=== PATIENT | male | born 1935 | race Caucasian/White ===

== ENCOUNTER 2021-06-21 23:15 | Emergency (ER) | payer MEDICARE ==
[~2021-06-21] VITALS: Ht 182.9 cm; Wt 111.3 kg
[2021-06-22 00:35] LABS: BASOPHILS # (AUTO) 0.1 X10'3 (0-0.2); EOSINOPHILS # (AUTO) 0.3 X10'3 (0-0.9); HEMOGLOBIN 14.7 g/dl (14.0-17.9); MEAN CORPUSCULAR HEMOGLOBIN 30.8 PG (27.0-31.0); PLATELET COUNT 169 X10'3 (140-440); RED CELL DISTRIBUTION WIDTH 15.7 % (11.5-14.5)
[2021-06-22 00:37] LABS: BASOPHILS % (AUTO) 0.5 % (0-1); EOSINOPHILS % (AUTO) 2.2 % (0-6); HEMATOCRIT 43.7 % (42.0-52.0); LYMPHOCYTES # (AUTO) 9.2 X10'3 (1.1-4.8); LYMPHOCYTES % (AUTO) 60.4 % (21-51); MEAN CORPUSCULAR HGB CONC 33.7 g/dL (33.0-36.5); MEAN CORPUSCULAR VOLUME 91.2 FL (78-98); MEAN PLATELET VOLUME 8.6 FL (7.4-10.4); MONOCYTES # (AUTO) 0.8 X10'3 (0-0.9); MONOCYTES % (AUTO) 4.9 % (2-12); NEUTROPHILS # (AUTO) 4.9 X10'3 (1.8-7.7); RED BLOOD COUNT 4.79 X10'6 (4.70-6.10); WHITE BLOOD COUNT 15.2 X10'3 (4.5-11.0)
[2021-06-22 00:48] LABS: ALANINE AMINOTRANSFERASE 27 U/L (12-78); ALBUMIN 3.7 G/DL (3.4-5.0); ALKALINE PHOSPHATASE 99 IU/L (46-116); ANION GAP 9 (8-16); ASPARTATE AMINO TRANSFERASE 25 U/L (10-37); BILIRUBIN,TOTAL 0.5 MG/DL (0.1-1.0); BLOOD UREA NITROGEN 22 MG/DL (7-18); BUN/CREATININE RATIO 16.3 (5.4-32.0); CHLORIDE 110 MMOL/L (99-107); CREATININE 1.35 MG/DL (0.60-1.10); GLUCOSE 106 MG/DL (70-104); LIPASE 98 U/L (73-393); SODIUM 145 MMOL/L (135-145); TOTAL CARBON DIOXIDE 26.5 MMOL/L (24-32); TOTAL PROTEIN 7.5 G/DL (6.4-8.2); eGFR 50 ML/MIN
[2021-06-22 01:07] LABS: PLATELET ESTIMATE NORMAL
[2021-06-22 01:13] LABS: TOTAL CELLS COUNTED 100
[2021-06-22 01:14] LABS: LARGE PLATELETS FEW
[2021-06-22] MEDS ORDERED: iohexol 300mg/ml 100ml inj. ONE (01:17)
[2021-06-22 01:51] LABS: CLARITY,URINE SLIGHTLY CLOUDY (Clear); COLOR,URINE YELLOW (Yellow); UA COLLECTION TYPE CLN CATCH MIDSTREAM
[2021-06-22 01:52] LABS: GLUCOSE, URINE NEGATIVE (Neg); KETONES,URINE NEGATIVE (Neg); NITRITES, URINE NEGATIVE (Neg); OCCULT BLOOD,URINE LARGE (Neg); PROTEIN,URINE TRACE mg/dl (Neg); UROBILINOGEN,URINE 0.2 E.U/dL (0.2-1.0)
[2021-06-22 01:53] LABS: LEUKOCYTE ESTERASE ,URINE SMALL (Neg)
[2021-06-22 02:10] LABS: BACTERIA,URINE 2+ /HPF (Neg); RBC,URINE 50-100 /HPF (0-2); WBC,URINE 50-100 /HPF (0-4)
[2021-06-22 02:11] LABS: CAL OXALATE CRYSTALS 2+ /HPF (NEGATIVE); MUCUS STRANDS NONE SEEN /LPF (Neg); SQUAMOUS EPITHELIAL CELL,UR FEW /LPF (FEW); WBC CLUMPS,URINE FEW /HPF (NEGATIVE)
[2021-06-22] MEDS ORDERED: CefTRIAXone/D5W-Rocephin 1gm 50 ML IV ONE (02:25)
[2021-06-22] MEDS ORDERED: LOPE2CAP PO (03:37)
[2021-06-22] MEDS ORDERED: CIPR-259 PO (03:37)
[2021-06-22 03:55] VITALS: BP 155/78
== END 2021-06-22 03:59 | disposition home or self-care (01) ==
LOC: ER 23:16
DX: K62.5 Hemorrhage of anus and rectum (principal); R91.1 Solitary pulmonary nodule; N39.0 Urinary tract infection, site not specified; Z79.2 Long term (current) use of antibiotics; Z79.899 Other long term (current) drug therapy
CPT/HCPCS: 36415; 74177; 80053; 81001; 83690; 84145; 85007; 85025; 86885; 86900; 86901; 87077; 87088; 87186; 93005; 96374; 99285; J0696; Q9967; 96365

== ENCOUNTER 2022-05-14 11:14 | Emergency (ER) | payer MEDICARE ==
[~2022-05-14] VITALS: Ht 182.9 cm; Wt 111.4 kg
[~2022-05-14 11:14] MED LIST: LOPE2CAP PO
[2022-05-14 11:19] VITALS: BP 181/91
[2022-05-14] MEDS ORDERED: LIDOcaine 1% W/epiNEPHrine 1:200,000 10ml vial IJ ONE (13:25)
[2022-05-14] MEDS ORDERED: LIDOcaine 1% W/epiNEPHrine 1:100,000 20ml vial IJ ONE (13:30)
[2022-05-14] MEDS ORDERED: CYCL-1 PO (15:04)
[2022-05-14] MEDS ORDERED: CEPH-585 PO (15:04)
== END 2022-05-14 15:15 | disposition home or self-care (01) ==
LOC: ER 11:15
DX: S61.011A Laceration without foreign body of right thumb without damage to nail, initial encounter (principal); S39.012A Strain of muscle, fascia and tendon of lower back, initial encounter; W01.0XXA Fall on same level from slipping, tripping and stumbling without subsequent striking against object, initial encounter; Y93.89 Activity, other specified; Y92.89 Other specified places as the place of occurrence of the external cause; Y99.8 Other external cause status
CPT/HCPCS: 12002; 99284; A6258; A6449

== ENCOUNTER 2024-09-29 09:45 | Emergency (ER) | payer MEDICARE ==
[~2024-09-29] VITALS: Ht 182.9 cm; Wt 106.0 kg
[~2024-09-29 09:45] MED LIST changes: +CYCL-1 PO
[2024-09-29 09:50] VITALS: BP 112/90; PULSE 102; RESP 16; TEMP 98.5; O2SAT 97
[2024-09-29 11:27] LABS: BASOPHILS % (AUTO) 0.1 % (0-1); EOSINOPHILS # (AUTO) 0.2 X10'3 (0-0.9); MEAN PLATELET VOLUME 8.3 FL (7.4-10.4); MONOCYTES # (AUTO) 0.9 X10'3 (0-0.9); NEUTROPHILS # (AUTO) 7.8 X10'3 (1.8-7.7)
[2024-09-29 11:30] LABS: HEMATOCRIT 51.6 % (42.0-52.0); HEMOGLOBIN 17.4 g/dl (14.0-17.9); LYMPHOCYTES # (AUTO) 9.8 X10'3 (1.1-4.8); LYMPHOCYTES % (AUTO) 52.2 % (21-51); MEAN CORPUSCULAR HEMOGLOBIN 31.5 PG (27.0-31.0); MEAN CORPUSCULAR HGB CONC 33.7 g/dL (33.0-36.5); MEAN CORPUSCULAR VOLUME 93.6 FL (78-98); NEUTROPHILS % (AUTO) 41.7 % (42-75); PLATELET COUNT 163 X10'3 (140-440); RED BLOOD COUNT 5.52 X10'6 (4.70-6.10); RED CELL DISTRIBUTION WIDTH 15.3 % (11.5-14.5); WHITE BLOOD COUNT 18.7 X10'3 (4.5-11.0)
[2024-09-29 11:44] LABS: ALANINE AMINOTRANSFERASE 21 U/L (12-78); ALBUMIN 3.4 G/DL (3.4-5.0); ALBUMIN/GLOBULIN RATIO 0.9 (1.1-1.5); ALKALINE PHOSPHATASE 67 IU/L (46-116); ANION GAP 11 (8-16); ASPARTATE AMINO TRANSFERASE 27 U/L (10-37); BILIRUBIN,TOTAL 0.7 MG/DL (0.1-1.0); BLOOD UREA NITROGEN 27 MG/DL (7-18); CALCIUM 8.4 MG/DL (8.5-10.1); CHLORIDE 101 MMOL/L (99-107); CREATININE 1.35 MG/DL (0.60-1.10); GLUCOSE 112 MG/DL (70-104); LIPASE 18 U/L (16-77); POTASSIUM 3.8 MMOL/L (3.5-5.1); SODIUM 135 MMOL/L (135-145); TOTAL CARBON DIOXIDE 23.4 MMOL/L (24-32); TOTAL PROTEIN 7.3 G/DL (6.4-8.2); eCRCL 43 ML/MIN; eGFR 50 ML/MIN
[2024-09-29 13:14] LABS: ANISOCYTOSIS 1+; PLATELET ESTIMATE NORMAL; TOTAL CELLS COUNTED 100
[2024-09-29] MEDS ORDERED: iohexol 300mg/ml 100ml inj. ONE (13:41)
[2024-09-29] MEDS: normal saline 1000ml 1,000 ML IV ONE ×2 (14:10→15:33)
[2024-09-29 15:50] LABS: BILIRUBIN,URINE NEGATIVE (Neg); CLARITY,URINE SLIGHTLY CLOUDY (Clear); COLOR,URINE YELLOW (Yellow); GLUCOSE, URINE NEGATIVE (Neg); KETONES,URINE 15 mg/dl (Neg); LEUKOCYTE ESTERASE ,URINE TRACE (Neg); NITRITES, URINE NEGATIVE (Neg); OCCULT BLOOD,URINE MODERATE (Neg); PROTEIN,URINE 30 mg/dl (Neg); UA COLLECTION TYPE CLN CATCH MIDSTREAM; UROBILINOGEN,URINE 0.2 E.U/dL (0.2-1.0)
[2024-09-29 16:03] LABS: BACTERIA,URINE 1+ /HPF (Neg); HYALINE CASTS 0-3 /LPF (NEGATIVE); MUCUS STRANDS NONE SEEN /LPF (Neg); SQUAMOUS EPITHELIAL CELL,UR FEW /LPF (FEW); WBC CLUMPS,URINE FEW /HPF (NEGATIVE); WBC,URINE 20-30 /HPF (0-4)
[2024-09-29] MEDS ORDERED: LEVO-65 PO (16:36)
[2024-09-29] MEDS: levoFLOXACIN 250mg tablet PO ONE (16:51)
== END 2024-09-29 17:06 | disposition home or self-care (01) ==
LOC: ER 09:46
DX: R19.7 Diarrhea, unspecified (principal); N39.0 Urinary tract infection, site not specified; G89.29 Other chronic pain; M54.9 Dorsalgia, unspecified; Z98.890 Other specified postprocedural states; Z79.899 Other long term (current) drug therapy; Z95.0 Presence of cardiac pacemaker
CPT/HCPCS: 36415; 74176; 80053; 81001; 83605; 83690; 85007; 85025; 87088; 96360; 96361; 99284; J7030; Q9967